=== PATIENT | female | born 1975 | race Caucasian/White ===

== ENCOUNTER 2016-09-23 15:55 | Emergency (ER) | payer SELFPAY ==
[~2016-09-23] VITALS: Ht 175.3 cm; Wt 132.3 kg
[~2016-09-23 15:55] MED LIST: ADVIL,NUPRIN,M200 MG PO; ALBUTEROL SULF8.5 GM IH; ALEVE220 MG PO; AUGMENTIN875 MG PO; AZO PO; BACTRIM,SEPT1 TABLET PO; CIPRO500 MG PO; DIFLUCAN150 MG PO; FLEXERIL10 MG PO; INDOCIN25 MG PO; MELOXICAM7.5 MG PO; NAPROSYN500 MG PO; NAPROXEN500 MG PO; NOHOMEMEDS; NORCO 5/3251 TABLET PO; NORCO 7.5/321 TABLET PO; PHENERGAN-CODE120 ML PO; TESSALON PERLE100 MG PO; ULTRAM50 MG PO; VALIUM5 MG PO
[2016-09-23] MEDS ORDERED: MICROGESTIN FE1 EACH PO (16:06)
[2016-09-23] MEDS ORDERED: DICLOFENAC SOD100 MG PO (16:06)
[2016-09-23 16:55] LABS: EOSINOPHIL (%) 1.1 % (0-5); EOSINOPHIL COUNT 0.1 K/uL (0-0.3); HEMATOCRIT 35.3 % (36.0-46.0); IMMATURE GRANULOCYTE (%) 0.4 % (0.0-0.7); INSTRUMENT ABS NEUTROPHIL CT 4.4 K/uL; LYMPHOCYTE COUNT 2.3 K/uL (1.0-2.8); MCH 27.2 PG (29.0-34.0); MCHC 32.3 G/DL (30.0-36.0); MCV 84.2 FL (83-99); MEAN PLAT.VOLUME 10.7 uM^3 (9.5-12.4); MONOCYTE (%) 5.9 % (3-12); MONOCYTE COUNT 0.4 K/uL (0-0.8); NEUTROPHIL (%) 60.9 % (45-76); NEUTROPHIL COUNT 4.4 K/uL (1.8-6.4); PLATELET COUNT 207 K/uL (156-360); RBC DIS.WIDTH-CV 14.2 % (11.8-14.6); RBC DIS.WIDTH-SD 43.4 % (39-53); RED BLOOD COUNT 4.19 M/uL (3.80-5.20); WHITE BLOOD COUNT 7.3 K/uL (4.1-10.2)
[2016-09-23 17:06] LABS: CHLORIDE 108 mEq/L (99-109); POTASSIUM 4.2 mEq/L (3.7-5.4); SODIUM 140 mEq/L (136-147)
[2016-09-23 17:07] LABS: GLUCOSE 102 mg/dL (70-99)
[2016-09-23 17:09] LABS: ANION GAP 11 MEQ/L (2-14)
[2016-09-23 17:11] LABS: GFR ESTIMATE (CALCULATED) > 59 mL/min/
[2016-09-23 17:12] LABS: UREA NITROGEN (BUN) 17 mg/dL (9-23)
[2016-09-23 17:19] LABS: QUANTITATIVE HCG < 4.0 MIU/ML
[2016-09-23 18:10] LABS: ADD MIUA? YES; BILIRUBIN NEGATIVE; BLOOD NEGATIVE; COLOR YELLOW ((YELLOW)); GLUCOSE (STRIP) NEGATIVE; KETONES NEGATIVE; LEUKOCYTES SMALL; NITRITE NEGATIVE; PROTEIN (STRIP) 30; SPECIFIC GRAVITY 1.033 (1.000-1.030); UROBILINOGEN 0.2 MG/DL (0.2-1.0)
[2016-09-23 18:14] LABS: INTERNAL CONTROL VALID? YES
[2016-09-23 18:19] VITALS: BP 148/80
[2016-09-23 18:33] LABS: BACTERIA 1+ /HPF; CALCIUM OXALATE CRYSTALS 4+ /HPF; EPITHELIAL CELLS 3+ /HPF; HYALINE CASTS 0-5 /LPF; MUCUS 4+ /LPF; RED BLOOD CELLS 0-5 /HPF (0-5); UCUL ADDED? NO
[2016-09-23] MEDS ORDERED: CIPRO250 MG PO (18:47)
== END 2016-09-23 19:42 | disposition home or self-care (01) ==
LOC: EME 15:55
PROVIDERS: Emergency Medicine
DX: N39.0 Urinary tract infection, site not specified (principal); R10.31 Right lower quadrant pain; Z87.440 Personal history of urinary (tract) infections
CPT/HCPCS: 74176; 80048; 81003; 84702; 84703; 85025; 99281; 99285; J2270; J2405; J7030

== ENCOUNTER 2017-09-03 22:10 | Emergency (ER) | payer OTHER ==
[~2017-09-03] VITALS: Ht 175.3 cm; Wt 133.0 kg
[~2017-09-03 22:10] MED LIST changes: +CIPRO250 MG PO; +DICLOFENAC SOD100 MG PO; +MICROGESTIN FE1 EACH PO
[2017-09-03] MEDS ORDERED: KEFLEX500 MG PO (22:43)
[2017-09-03 23:00] VITALS: BP 157/104
== END 2017-09-03 23:04 | disposition home or self-care (01) ==
LOC: RME 22:10 → EME 22:10 → RME 23:04
DX: L73.9 Follicular disorder, unspecified (principal); Z88.5 Allergy status to narcotic agent; Z88.6 Allergy status to analgesic agent
CPT/HCPCS: 99281; 99284